=== PATIENT | female | born 1945 | race Caucasian/White ===

== ENCOUNTER 2022-12-29 12:49 | Outpatient (OUT) | payer BC, SELFPAY ==
--- NOTE | 2022-12-29 13:24 | XR_ITS ---
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 FINDINGS: BONES: Mild right convex curvature of thoracic spine. Multilevel degenerative endplate changes. No compression fracture, spondylolisthesis, bone lesion. DISC SPACES: Multilevel moderate-marked narrowing of the mid and lower thoracic spine. PARASPINOUS: Negative. No paraspinous abnormality is seen. OTHER: Negative. IMPRESSION: 1. Moderate degenerative changes of the mid-lower thoracic spine. No appreciable acute abnormality. Electronically authenticated by: JOSE CRUZ Date: 12/29/2022 14:16
--- NOTE | 2022-12-29 13:34 | CT_ITS ---
The [address] [address] Patient Name: PORSCHE BECERRA MRN: [id number] date: 1945 Sex: F Assigned Patient Location: CT Current Patient Location: CT Accession/Order Number: [id number] Exam Date: 12/29/2022 13:29 Report Date: 12/29/2022 14:34 At the request of: MELITA RAMIREZ Procedure: CT chest wo con EXAMINATION: CT chest wo con HISTORY: Lung nodule R91.1 ; follow-up right lower lobe nodule COMPARISON: CT chest 07/21/2022 TECHNIQUE: Multi-planar CT images were obtained without and/or with IV contrast as indicated by examination type. Axial, Coronal, and Sagittal images. Dose reduction techniques were achieved by using automated exposure control and/or adjustment of mA and/or kV according to patient size and/or use of iterative reconstruction technique. FINDINGS: LUNGS: Stable 5 mm nodule within the right upper lobe adjacent the minor fissure. Minimal emphysematous changes. No acute infiltrates. PLEURA: No mass, effusion, or pneumothorax. VASCULATURE: No abnormality. GEO: A few calcified right hilar lymph nodes suggestive chronic granulomatous disease. MEDIASTINUM: No mass or adenopathy. CARDIAC: Atherosclerotic coronary artery disease. No pericardial effusion. AORTA: No aneurysm or dissection. CHEST WALL: No mass or axillary adenopathy. BONES: No bone lesion or fracture. LIMITED ABDOMEN: No suspicious findings Limited images of the upper abdomen. OTHER: Negative. IMPRESSION: 1. Stable 5 mm nodule within right upper lobe (inadvertently stated to be within right lower lobe on prior study). Consider follow-up imaging in one year to document stability. Electronically authenticated by: JOSE CRUZ Date: 12/29/2022 14:34
== END 2022-12-29 12:50 ==
LOC: CT 12:54
PROVIDERS: PCP Internal Medicine; Visit Provider Internal Medicine
DX: R91.1 Solitary pulmonary nodule (principal); M40.204 Unspecified kyphosis, thoracic region
CPT/HCPCS: 71250; 72072

== ENCOUNTER 2023-03-28 10:40 | Emergency (ER) | payer BC, SELFPAY ==
[2023-03-28 10:45] VITALS: BP 110/68; PULSE 72; RESP 18; TEMP 36.6; O2SAT 96; BMI 17.8
--- NOTE | 2023-03-28 10:57 | ECG_ITS ---
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
--- NOTE | 2023-03-28 10:57 | CT_ITS ---
The [address] [address] Patient Name: PORSCHE BECERRA MRN: [id number] date: 1945 Sex: F Assigned Patient Location: ER Current Patient Location: ER Accession/Order Number: [id number] Exam Date: 03/28/2023 11:23 Report Date: 03/28/2023 11:38 At the request of: CHEPE GARCIA Procedure: CT head/brain wo con EXAM: CT scan of the head without contrast. Dose reduction technique used: Automated exposure control and/or adjustment of the mA and/or kV according to patient size and/or use of iterative reconstruction technique. REASON FOR EXAM: head injury COMPARISON: None FINDINGS: No intracranial hemorrhage, mass effect, midline shift, fractures or evidence of acute ischemic infarct. No hydrocephalus. Minimal generalized cerebral and cerebellar volume loss. Minimal small vessel gliosis. Paranasal sinuses and mastoid air cells are clear. Remainder unremarkable. CT/CT head/brain wo con IMPRESSION: No acute intracranial abnormalities. Electronically authenticated by: SYED DURAN Date: 03/28/2023 11:38
--- NOTE | 2023-03-28 10:58 | ED_ITS ---
HPI - General Adult General Chief complaint: Head Injury Stated complaint: UPPER EXTREMITY INJURY TO HEAD Time Seen by Provider: 03/28/23 10:54 Source: patient Mode of arrival: walk-in History of Present Illness HPI narrative: 77-year-old female presents for syncope and head injury. She was in her bathroom and she passed out. He hit right side of her head and has some dried blood. She doesn't have a headache or neck pain. She is on a blood thinner. No other injury was sustained. She states she feels fine and that this is not a big deal. No chest pain or palpitations. No vomiting or ddiarrhea or fever. Related Data Home Medications Medication Instructions Recorded Confirmed aspirin 81 mg chewable tablet 1 tab PO QDAY 03/28/23 03/28/23 atorvastatin 80 mg tablet 80 mg PO QDAY 03/28/23 03/28/23 clopidogrel 75 mg tablet 75 mg PO QDAY 03/28/23 03/28/23 dapagliflozin propanediol 10 mg 10 mg PO QDAY 03/28/23 03/28/23 tablet (Farxiga) isosorbide mononitrate 30 mg 30 mg PO QAM 03/28/23 03/28/23 tablet,extended release 24 hr lisinopril 2.5 mg tablet 2.5 mg PO QDAY 03/28/23 03/28/23 metoprolol succinate 25 mg 25 mg PO QDAY 03/28/23 03/28/23 tablet,extended release 24 hr spironolactone 25 mg tablet 25 mg PO QAM 03/28/23 03/28/23 Allergies Allergy/AdvReac Type Severity Reaction Status Date / Time EES AdvReac Intermediate Uncoded 03/28/23 10:47 Review of Systems ROS Narrative A ten point review of systems is negative except as noted above. Exam Narrative Exam Narrative: Nurses note and vital signs reviewed and patient is not hypoxic. General: The patient appears well and in no apparent distress. Patient is resting comfortably on cart. Skin: Warm, dry, no pallor noted. There is no rash noted. Head: Normocephalic, Eye: Normal conjunctiva, no drainage Ears, Nose, Mouth, and Throat: oral mucosa is moist. Nares patent. Cardiovascular: Regular Rate and Rhythm Respiratory: Patient is in no distress, no accessory muscle use, lungs are clear to auscultation, no wheezing, rales or rhonchi Back: non-tender, cervical spine nontender GI: , ostomy in place, nontender Musculoskeletal: palpable tenderness to her extremities Neurological: A&O x4, normal speech Psychiatric: Cooperative Constitutional Vital Signs, click to edit/add: Last Vital Signs Temp 97.8 F 03/28/23 10:45 Pulse 72 03/28/23 10:45 Resp 18 03/28/23 10:45 BP 110/68 03/28/23 10:45 Pulse Ox 96 03/28/23 10:45 Course Vital Signs Vital signs: Vital Signs Temperature 97.8 F 03/28/23 10:45 Pulse Rate 72 03/28/23 10:45 Respiratory Rate 18 03/28/23 10:45 Blood Pressure 110/68 03/28/23 10:45 Pulse Oximetry 96 03/28/23 10:45 Temperature 97.8 F 03/28/23 10:45 Pulse Rate 72 03/28/23 10:45 Respiratory Rate 18 03/28/23 10:45 Blood Pressure 110/68 03/28/23 10:45 Pulse Oximetry 96 03/28/23 10:45 Medical Decision Making MDM Narrative Medical decision making narrative: CAT scan negative. [place] placed. They are to be removed in ten days. Tetanus status is up-to-date already. The rest of her workup negative as well. Treatment diagnosis and follow-up were discussed with the patient. She doesn't feel dizzy or lightheaded. Differential Diagnosis Differential Diagnosis: intracranial hemorrhage, syncope, anemia, acute kidney injury Lab Data Lab results reviewed: Yes I reviewed the patient's lab results Labs: Lab Results 03/28/23 Range/Units 11:17 WBC 7.4 (4.0-11.0) 10^3/uL RBC 4.30 (4.20-5.40) 10^6/uL Hgb 14.1 (12.0-16.0) g/dL Hct 41.2 (36.0-48.0) % MCV 95.8 (81.0-99.0) fL MCH 32.8 (26.7-34.0) pg MCHC 34.2 (29.9-35.2) g/dL RDW 12.9 (11.0-15.0) % Plt Count 257 (150-450) 10^3/uL MPV 8.9 L (9.5-13.5) fL Neut % (Auto) 76.3 H (43.0-75.0) % Lymph % (Auto) 10.4 L (20.5-60.0) % [place] % (Auto) 12.3 H (1.7-12.0) % Eos % (Auto) 0.3 L (0.9-7.0) % Baso % (Auto) 0.4 (0.2-2.0) % Neut # (Auto) 5.6 (1.4-6.5) 10^3/uL Lymph # (Auto) 0.8 L (1.2-3.8) 10^3/uL [place] # (Auto) 0.9 H (0.3-0.8) 10^3/uL Eos # (Auto) 0.0 (0.0-0.7) 10^3/uL Baso # (Auto) 0.0 (0.0-0.1) 10^3/uL Abs Immat Gran (auto) 0.02 (0.00-0.03) 10^3/uL Imm/Tot Granulo (auto) 0.3 (0.0-0.5) % Sodium 133 L (136-145) mmol/L Potassium 4.1 (3.5-5.1) mmol/L Chloride 97 L (98-107) mmol/L Carbon Dioxide 21.1 (21.0-32.0) mmol/L Anion Gap 19.0 BUN 13.0 (7.0-18.0) mg/dL Creatinine 0.82 (0.55-1.02) mg/dL Est GFR ( Amer) >60 (>=60) Est GFR (Non-Af Amer) >60 (>=60) BUN/Creatinine Ratio 15.9 Glucose 96 (74-106) mg/dL Calcium 8.9 (8.5-10.1) mg/dL Imaging Data CT scan - head: Radiologist's impression: Procedure: CT head/brain wo con EXAM: CT scan of the head without contrast. Dose reduction technique used: Automated exposure control and/or adjustment of the mA and/or kV according to patient size and/or use of iterative reconstruction technique. REASON FOR EXAM: head injury COMPARISON: None FINDINGS: No intracranial hemorrhage, mass effect, midline shift, fractures or evidence of acute ischemic infarct. No hydrocephalus. Minimal generalized cerebral and cerebellar volume loss. Minimal small vessel gliosis. Paranasal sinuses and mastoid air cells are clear. Remainder unremarkable. IMPRESSION: No acute intracranial abnormalities. Electronically authenticated by: SYED DURAN Date: 03/28/2023 11:38 ECG Data Attestation: I personally reviewed and interpreted this ECG as follows: (EKG on my interpretation shows sinus rhythm with a rate of 71) Discharge Plan Discharge Chief Complaint: Head Injury Clinical Impression: Syncope, Laceration of scalp Patient Disposition: Home, Self-Care Time of Disposition Decision: 12:50 Condition: Good Mode of Transportation: Private Vehicle Prescriptions / Home Meds: No Action aspirin 81 mg tablet,chewable 1 tab PO QDAY clopidogrel 75 mg tablet 75 mg PO QDAY isosorbide mononitrate 30 mg tablet extended release 24 hr 30 mg PO QAM lisinopril 2.5 mg tablet 2.5 mg PO QDAY metoprolol succinate 25 mg tablet extended release 24 hr 25 mg PO QDAY spironolactone 25 mg tablet 25 mg PO QAM Farxiga 10 mg tablet 10 mg PO QDAY atorvastatin 80 mg tablet 80 mg PO QDAY Instructions: Laceration (ED), Syncope (ED), Staple Care (ED) Additional Instructions: Shruti to be removed in ten days. Do not wash hair for twenty-four hours. Stand Alone Forms: Portal Instructions Referrals: MELITA RAMIREZ [Primary Care Provider] - 1 week
[2023-03-28 11:25] LABS: Basophils Percent Auto 0.4 % (0.2-2.0); Eosinophils Percent Auto 0.3 % (0.9-7.0); Hematocrit 41.2 % (36.0-48.0); Hemoglobin 14.1 g/dL (12.0-16.0); Immature Granulocytes Abs Auto 0.02 10^3/uL (0.00-0.03); Immature Granulocytes Pct Auto 0.3 % (0.0-0.5); Lymphocytes Absolute Auto 0.8 10^3/uL (1.2-3.8); Lymphocytes Percent Auto 10.4 % (20.5-60.0); Mean Corpuscular HGB Conc 34.2 g/dL (29.9-35.2); Mean Corpuscular Hemoglobin 32.8 pg (26.7-34.0); Mean Corpuscular Volume 95.8 fL (81.0-99.0); Mean Platelet Volume 8.9 fL (9.5-13.5); Monocytes Absolute Auto 0.9 10^3/uL (0.3-0.8); Monocytes Percent Auto 12.3 % (1.7-12.0); Neutrophils Absolute Auto 5.6 10^3/uL (1.4-6.5); Neutrophils Percent Auto 76.3 % (43.0-75.0); Platelet Count 257 10^3/uL (150-450); Red Cell Distribution Width 12.9 % (11.0-15.0); White Blood Count 7.4 10^3/uL (4.0-11.0)
[2023-03-28 11:31] LABS: BUN Creatinine Ratio 15.9; Calcium 8.9 mg/dL (8.5-10.1); Carbon Dioxide 21.1 mmol/L (21.0-32.0); Chloride 97 mmol/L (98-107); Estimated GFR (African America >60 (>=60); Estimated GFR (Non-African Ame >60 (>=60); Glucose 96 mg/dL (74-106); Potassium 4.1 mmol/L (3.5-5.1); Sodium 133 mmol/L (136-145)
--- NOTE | 2023-03-28 11:35 | PC.NURSE ---
Patient was at home taking a shower when she said she doesn't know what happened but she had a syncopal episode. patient lives with daughter who was at the home did not witness fall but states she heard a bang and came in to find patient on floor. LOC briefly when patient passed out. unknown what patient hit head on. laceration and dried blood in hair above right ear. patient denies any other symptoms or feeling of dizziness prior to. patient states she did not eat or drink this morning because she did not feel like it. patient states she uses anticoagulants. family doctor is dr. harrison. sees [facility] at [place]. 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 patient brought in with son. denies any needs. states nothing hurts but her head. does not want to be in er long. does not want extensive treatments but is agreeable. iv placed, urine obtained, patient ambulated on her own with assistance from son. ekg obtained and rotating vitals
--- NOTE | 2023-03-28 13:11 | PC.NURSE ---
2 stapled placed by physician. bleeding controlled. wound well approximated. patient tolerated well
== END 2023-03-28 13:14 | disposition home or self-care (01) ==
PROVIDERS: Emergency Provider Emergency Medicine; PCP Internal Medicine
DX: S01.01XA Laceration without foreign body of scalp, initial encounter (principal); R55 Syncope and collapse; W22.8XXA Striking against or struck by other objects, initial encounter; Z79.899 Other long term (current) drug therapy; Z79.82 Long term (current) use of aspirin
CPT/HCPCS: 12001; 36415; 70450; 80048; 85025; 93005; 99285

== ENCOUNTER 2023-09-14 07:37 | Outpatient (OUT) | payer BC, SELFPAY ==
[2023-09-14 08:53] LABS: BUN Creatinine Ratio 13.8; Carbon Dioxide 27.4 mmol/L (21.0-32.0); Chloride 100 mmol/L (98-107); Estimated GFR (African America >60 (>=60); Estimated GFR (Non-African Ame >60 (>=60); Glucose 104 mg/dL (74-106); Potassium 4.4 mmol/L (3.5-5.1); Sodium 137 mmol/L (136-145)
== END 2023-09-14 07:38 | disposition home or self-care (01) ==
LOC: NM 07:37
PROVIDERS: PCP Internal Medicine; Visit Provider Nurse Practitioner
DX: I25.10 Atherosclerotic heart disease of native coronary artery without angina pectoris (principal); R06.09 Other forms of dyspnea; I10 Essential (primary) hypertension
CPT/HCPCS: 36415; 80048